=== PATIENT | male | born 1960 | race Caucasian/White ===

== ENCOUNTER 2021-04-28 12:55 | Emergency (ER) | payer OTHER, SELFPAY ==
[2021-04-28 13:05] VITALS: BP 152/86; PULSE 68; RESP 22; TEMP 36.8; O2SAT 92
[2021-04-28 15:40] LABS: Add Manual Diff / Slide Review NO; Basophils Absolute Auto 100 /uL (0-100); Basophils Percent Auto 0.9 % (0-2); Eosinophils Absolute Auto 100 /uL (0-450); Eosinophils Percent Auto 1.7 % (2-4); Hematocrit 45.7 % (41-53); Hemoglobin 14.6 g/dL (13.5-17.5); Lymphocytes Absolute Auto 1300 /uL (1100-4500); Lymphocytes Percent Auto 15.8 % (25-40); Mean Corpuscular Hemoglobin 31.1 PG (26-34); Mean Corpuscular Volume 97.2 fL (80-100); Monocytes Absolute Auto 600 /uL (0-900); Monocytes Percent Auto 7.8 % (3-14); Neutrophils Absolute Auto 6000 /uL (1500-7000); Neutrophils Percent Auto 73.8 % (50-75); Platelet Count 212 X10^3/uL (150-400); Red Cell Distribution Width 13.8 % (11.6-14.8); White Blood Cell Count 8.1 X10^3/uL (4.5-11.0)
[2021-04-28 15:51] LABS: Alanine Aminotransferase 19 IU/L (<50); Albumin 4.1 g/dL (3.5-5.0); Albumin Globulin Ratio 1.3 (1.0-2.8); Alkaline Phosphatase 109 U/L (38-126); Aspartate Aminotransferase 26 IU/L (17-59); Bilirubin Total 0.3 mg/dL (0.2-1.3); Blood Urea Nitrogen 15 mg/dL (9-20); Carbon Dioxide 32 mmol/L (22-32); Chloride 104 mmol/L (98-107); Creatine Kinase 61 U/L (55-170); Estimated Glomerular Filt Rate > 60.0 mL/min (>60); Globulin 3.2 g/dL (1.7-4.1); Glucose 92 mg/dL (80-110); HEMOLYSIS < 15 (0-50); Potassium 4.6 mmol/L (3.4-5.1); Sodium 141 mmol/L (137-145); Total Protein 7.3 g/dL (6.3-8.2)
--- NOTE | 2021-04-28 15:56 | ED_ITS ---
HPI - Extremity Problem General Chief complaint: Extremity Problem,Nontraumatic Stated complaint: Swelling Legs, HX COPD Time Seen by Provider: 04/28/21 15:56 Source: patient Mode of arrival: Ambulatory History of Present Illness HPI Narrative: This is a 60-year-old male comes emergency department with complaint of bilateral lower extremity swelling when she appreciated the last 4 days. He states actually starting to improve a little bit. Patient noted it is quite swollen. He has some mild redness. He denies any chest pain, no shor tness of breath. No fevers or chills. No cold cough or congestion. He has not any nausea or vomiting. He has not had any new diarrhea, constipation, black or bloody stools or any urinary symptoms. 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 Patient does state he has been out of his Advair since he arrived. This was about a month and half ago. 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 He has a history of tobacco abuse but has since quit. He states the swelling has mildly improved over the last day or so. Related Data Allergies Allergy/AdvReac Type Severity Reaction Status Date / Time No Known Drug Allergies Allergy Verified 04/28/21 15:41 Review of Systems Review of Systems ROS Unobtainable: All systems reviewed & are unremarkable except as noted in HPI and below Patient History Medical History COPD (chronic obstructive pulmonary disease) Social History Smoking Status: Former smoker Smoking Status: Former smoker Exam Narrative Exam Narrative: GENERAL: Alert and oriented x three, male in mild distress. Patient is seated comfortably in a upright chair. HEENT: Head normocephalic, atraumatic, EOMI, pupils reactive, face symmetric, moist mucous membranes NECK: Supple, full range of motion CARDIOVASCULAR: Regular rate and rhythm without murmurs, rubs or gallops. RESPIRATORY: Breath sounds equal bilaterally, no wheezes rales or rhonchi. ABDOMEN: Soft, nontender. Normoactive bowel sounds all 4 quadrants. No guarding or rebound, rigidity, no mass : No CVA tenderness EXTREMITIES: Normal range of motion, positive for bilateral 2+ edema. Neurovascularly intact. NEUROLOGICAL: Cranial nerves II through XII grossly intact. Moving all extremities SKIN: Warm, dry, no petechiae, no rashes or lesions. Initial Vital Signs Initial Vital Signs: Vital Signs Temperature 98.3 F 04/28/21 13:05 Pulse Rate 68 04/28/21 13:05 Respiratory Rate 22 04/28/21 13:05 Blood Pressure 152/86 H 04/28/21 13:05 Pulse Oximetry 92 04/28/21 13:05 Course Orders Ordered: ED Orders 04/28/21 15:20 CBC Auto Diff [Complete Blood Count AUTO DIFF] Stat Comprehensive Metabolic Panel Stat NT-proBNP (BNP-Adult 18+) Stat Troponin & CK Cardiac Panel Stat 04/28/21 15:56 XR chest 1V Stat 04/28/21 16:05 EKG-12 Lead Stat 04/28/21 16:09 US periph venous low extrem bi Stat Discontinued Medications Furosemide (Furosemide 40 Mg Tablet) 40 mg PO NOW ONE Stop: 04/28/21 17:31 Last Admin: 04/28/21 17:41 Dose: 40 mg Documented by: GIANNA Vital Signs Vital signs: Vital Signs - 8 hr 04/28/21 13:05 04/28/21 17:49 Temperature 98.3 F 98.3 F Pulse Rate 68 72 Respiratory Rate 22 18 Blood Pressure 152/86 H 158/85 H Pulse Oximetry 92 93 MDM - Extremity (Nontraumatic) Lab Data Result diagrams: 04/28/21 15:20 04/28/21 15:20 Labs: Lab Results 04/28/21 04/28/21 Range/Units 15:20 15:20 WBC 8.1 (4.5-11.0) X10^3/uL RBC 4.70 (4.5-5.9) X10^6/uL Hgb 14.6 (13.5-17.5) g/dL Hct 45.7 (41-53) % MCV 97.2 (80-100) fL MCH 31.1 (26-34) PG MCHC 32.0 (30-36) % RDW 13.8 (11.6-14.8) % Plt Count 212 (150-400) X10^3/uL Neut % (Auto) 73.8 (50-75) % Lymph % (Auto) 15.8 L (25-40) % [place] % (Auto) 7.8 (3-14) % Eos % (Auto) 1.7 L (2-4) % Baso % (Auto) 0.9 (0-2) % Neut # (Auto) 6000 (9338-6830) /uL Lymph # (Auto) 1300 (9522-0290) /uL [place] # (Auto) 600 (0-900) /uL Eos # (Auto) 100 (0-450) /uL Baso # (Auto) 100 (0-100) /uL Sodium 141 (137-145) mmol/L Potassium 4.6 (3.4-5.1) mmol/L Chloride 104 (98-107) mmol/L Carbon Dioxide 32 (22-32) mmol/L BUN 15 (9-20) mg/dL Creatinine 0.79 (0.66-1.25) mg/dL Estimated GFR > 60.0 (>60) mL/min BUN/Creatinine Ratio 19.0 (6-22) Glucose 92 (80-110) mg/dL Calcium 9.0 (8.4-10.2) mg/dL Total Bilirubin 0.3 (0.2-1.3) mg/dL AST 26 (17-59) IU/L ALT 19 (<50) IU/L Alkaline Phosphatase 109 (38-126) U/L Total Creatine Kinase 61 (55-170) U/L CK-MB (CK-2) TNP CK-MB (CK-2) Rel Index TNP Troponin I < 0.012 (0.01-0.034) ng/mL NT-Pro-B Natriuret Pep 224 H (<125) pg/mL Total Protein 7.3 (6.3-8.2) g/dL Albumin 4.1 (3.5-5.0) g/dL Globulin 3.2 (1.7-4.1) g/dL Albumin/Globulin Ratio 1.3 (1.0-2.8) Imaging Data Chest x-ray: Radiologist's Impression: [address] [id number] ReportSigned Patient: Andrea Castañeda EMR#: [id number]: 9Acct:[id number]/Sex: 60 / MDate of Service: 04/28/21Loc: EDAccession Number: [id number] Procedure: XR chest 1V Ordering Provider: Sierra Call D.O. PROCEDURE: XR CHEST 1V INDICATIONS: b/l lower extremity edema TECHNIQUE: One view of the chest was acquired. COMPARISON: [facility], CHEST 2 VIEW, 08/21/2013, 10:33. FINDINGS: Surgical changes and devices: Left chest wall cardiac device lead is seen in the region of right ventricle. Lungs and pleura: Linear scarring/atelectasis in bilateral mid lung field is seen. No pleural effusions or pneumothorax. Mediastinum: Mediastinal contours appear normal. Heart size is enlarged. Bones and chest wall: No suspicious bony lesions. Overlying soft tissues appear unremarkable. IMPRESSION: No acute cardiopulmonary pathology. Dictated by: Ed Kirby M.D. on 04/28/2021 at 16:31 Approved by: Ed Kirby M.D. on 04/28/2021 at 16:32 US - DVT: Radiologist's Impression: [address] [id number] ReportSigned Patient: Andrea Castañeda EMR#: [id number]: 9Acct:[id number]/Sex: 60 / MDate of Service: 04/28/21Loc: EDAccession Number: [id number] Procedure: US periph venous low extrem bi Ordering Provider: Sierra Call D.O. PROCEDURE: US PERIPH VENOUS LOW EXTREM BI INDICATIONS: bilateral LE swelling, hx cad, ca, single kidney, + travel TECHNIQUE: Real-time imaging, as well as color and pulse Doppler interrogation, were performed of the deep veins of both legs from the inguinal ligament to the popliteal fossa. COMPARISON: None. FINDINGS: Right: The common femoral, femoral and popliteal veins are normally compressible, and free of intraluminal thrombus. Color and pulse Doppler demonstrate normal phasic intravascular flow. There is normal augmentation response to distal compression maneuver. Left: The common femoral, femoral and popliteal veins are normally compressible, and free of intraluminal thrombus. Color and pulse Doppler demonstrate normal phasic intravascular flow. There is normal augmentation response to distal compression maneuver. IMPRESSION: No deep venous thrombosis. Dictated by: Makenzie Vale M.D. on 04/28/2021 at 17:03 Approved by: Makenzie Vale M.D. on 04/28/2021 at 17:03 ECG Data Interpretation: Normal sinus rhythm, rate of 60 MO 168 QRS is [address] elevation depression appreciated at this time. Patient has prior EKG from 08/02/2013 and similar EKG also from 11/02/2012. MDM Narrative Medical decision making narrative: This is a 60-year-old male with new onset swelling which is increased in his bilateral lower extremities. Patient has multiple possibilities including CHF with his known coronary artery disease and defibrillator in place, renal dysfunction secondary to having a single kidney. Patient has a very slight bump in his BN P chest x-ray, DVT ultrasound and CBC, CMP troponin do not show any other acute changes. Patient has only had swelling in his lower extremities with no additional changes. Suspect that this may be related to his coronary artery disease. He does have prior EKGs which do not appear changed from comparison from several years ago. Patient has seen Cardiology locally in the past. With his renal dysfunction given a single dose of Lasix here, conservative measures such as elevation and compression stockings and asked to contact Cardiology to follow up for further evaluation and possibly an echo as an outpatient. Patient was encouraged to return if he is having any worsening symptoms or is unable to follow-up in appropriate time frame. Discharge Plan Departure Patient Disposition: Home Clinical Impression: CHF (congestive heart failure) Instructions: DI for Heart Failure Activity Restrictions/Additional Instructions: Your labs today show a very mildly elevated BNP which can be consistent with heart failure. Your pro bnp level is 224 today. Please call Cardiology for follow-up. You were given a single dose of Lasix here. Because you only have a single kidney I would not recommend taking this chronically at this time. I do recommend elevating your legs whenever you are able. You may try wearing compression stockings as tolerated, it is quite warm currently so you may wish to elevate your legs more frequently until the weather is cooler. Please return if you are having or worsening symptoms, increasing swelling of your legs, chest pain or pressure, shortness of breath, difficulty lying flat, fevers, or other new or concerning symptoms. Referrals: Loy Berumen MD [Physician] -
[2021-04-28 16:02] LABS: NT-proBNP (BNP-Adult 18+) 224 pg/mL (<125); Troponin I < 0.012 ng/mL (0.01-0.034)
--- NOTE | 2021-04-28 16:09 | DI.US.S_ITS ---
PROCEDURE: US PERIPH VENOUS LOW EXTREM BI INDICATIONS: bilateral LE swelling, hx cad, ca, single kidney, + travel TECHNIQUE: Real-time imaging, as well as color and pulse Doppler interrogation, were performed of the deep veins of both legs from the inguinal ligament to the popliteal fossa. COMPARISON: None. FINDINGS: Right: The common femoral, femoral and popliteal veins are normally compressible, and free of intraluminal thrombus. Color and pulse Doppler demonstrate normal phasic intravascular flow. There is normal augmentation response to distal compression maneuver. Left: The common femoral, femoral and popliteal veins are normally compressible, and free of intraluminal thrombus. Color and pulse Doppler demonstrate normal phasic intravascular flow. There is normal augmentation response to distal compression maneuver. IMPRESSION: No deep venous thrombosis. Dictated by: Makenzie Vale M.D. on 04/28/2021 at 17:03 Approved by: Makenzie Vale M.D. on 04/28/2021 at 17:03
[2021-04-28] MEDS: FUROSEMIDE 40 MG TABLET PO (17:41)
[2021-04-28 17:49] VITALS: BP 158/85; PULSE 72; RESP 18; TEMP 36.8; O2SAT 93
== END 2021-04-28 17:50 | disposition home or self-care (01) ==
PROVIDERS: Emergency Medicine; Emergency Provider Emergency Medicine; Family Provider Physician Assistant Medical
DX: I50.9 Heart failure, unspecified (principal)
CPT/HCPCS: 36415; 71045; 80053; 82550; 83880; 84484; 85025; 93005; 93970; 99284